=== PATIENT | female | born 1985 ===

== ENCOUNTER → 2020-07-24 | Outpatient (CLI) | payer BC, OTHER ==
--- NOTE | 2020-07-24 16:55 | P.HPBAR ---
Bariatric H&P - History & Physicial H&P Date: 07/24/20 History & Physicial: Visit/CC: Patient initial contact: Initial weight: Initial weight in pounds: Height: Initial BMI: Last weight: Current weight: Current weight in pounds: Current BMI: Harrah body weight (based on NIH guidelines): Excess body weight loss: The patient is a 34 year-old F who presents for Bariatric Assessment. [address] Butler. She had the band and lost down to 240 pounds. Highest weight 299 pounds. No GERD with the band. She is not aware of fluid in the band. She wants to use. Esophagram. She reports dysphagia. Get labs. Bariatric Checklist Checklist: Plan: Checklist: EGD: 1. Hiatal hernia: 2. H. Pylori: HgbA1c: Vitamin D: Smoking: Primary care physician referral: Psychiatry clearance: Cardiology clearance: Sleep study: Diet journal: VTE risk score: VTE risk level: Rehab needs at discharge:
[2020-07-24 16:56] VITALS: BP 126/71; PULSE 99; RESP 18; TEMP 98.1
== END | disposition home or self-care (01) ==
LOC: BARWHC3 16:30
PROVIDERS: ATTEND Surgery Plastic and Reconstructive Surgery
DX: Z46.51 Encounter for fitting and adjustment of gastric lap band (principal); R13.10 Dysphagia, unspecified; Z98.84 Bariatric surgery status
CPT/HCPCS: 99201

== ENCOUNTER → 2020-08-01 | Outpatient (CLI) | payer BC, OTHER ==
--- NOTE | 2020-08-01 09:13 | FL ---
EXAMINATION TYPE: FL barium swallow DATE OF EXAM: 08/01/2020 LAP BANDING LIMITED ESOPHAGRAM: CLINICAL HISTORY: History of lap band placed 2009 with worsening dysphagia. TECHNIQUE: Limited esophagram is performed utilizing 2-3 oz of contrast. 13 seconds of fluoro time and 19 images obtained. COMPARISON: None. FINDINGS: Pre-procedure operations boardman image shows lap band in satisfactory position in proximal stomach ju st below the gastroesophageal junction. Angle is satisfactory. The patient then drank oral contrast. There is good flow of contrast along the course of the esophagu s. There is good flow of contrast along the course of the lap band, there is no evidence of contrast extravasation to suggest leak. There is no lap band slippage appreciated. IMPRESSION: No evidence of lap band slippage or significant obstruction.
== END | disposition home or self-care (01) ==
LOC: RADUSWWP 08:12
PROVIDERS: ATTEND Surgery Plastic and Reconstructive Surgery
DX: R13.10 Dysphagia, unspecified (principal)
CPT/HCPCS: 74220